=== PATIENT | female | born 1935 | race Two or more races ===

== ENCOUNTER 2020-02-05 13:42 | Outpatient (CLI) | payer MEDICARE, MEDICAID ==
[~2020-02-05] VITALS: Ht 154.9 cm; Wt 51.7 kg
[2020-02-05 14:05] VITALS: BP 144/64
--- NOTE | 2020-02-06 08:29 | Consultation ---
DATE OF CONSULTATION: 02/05/2020 GASTROENTEROLOGY CONSULTATION CONSULTING PHYSICIAN: Miki Washington MD. CHIEF COMPLAINT: "A lot of gas." HISTORY OF PRESENT ILLNESS: The patient was seen with the daughter, who speaks Lithuanian. Apparently, the patient was referred to us by another GI doctor for evaluation of gas. According to the family, the patient had GI procedures relatively recently, endoscopy and colonoscopy, and they did not find any much to explain her gas. PAST MEDICAL HISTORY: 1. Diabetes. 2. Hypertension. 3. Hypercholesteremia. PAST SURGICAL HISTORY: None. MEDICATIONS: Please see medication reconciliation list. FAMILY HISTORY: No family history of GI malignancies. SOCIAL HISTORY: The patient denies any tobacco, alcohol, or drug abuse. ALLERGIES: No known allergies. REVIEW OF SYSTEMS: Positive for constipation and gas and bloating. No evidence of bleeding. No weight loss. PHYSICAL EXAMINATION: VITAL SIGNS: Temperature 97.5, blood pressure 144/64, pulse 71, respirations 20. Height is 5 feet 1 inch. Weight is 114. HEENT: Normocephalic and atraumatic. Sclerae are anicteric. NECK: Supple. No evidence of obvious lymphadenopathy. CARDIOVASCULAR: Regular rate and rhythm. Plus S1-S2. LUNGS: Clear to auscultation bilaterally. ABDOMEN: Positive bowel sounds. Soft and nontender. No rebound. No guarding. No peritoneal sign. EXTREMITIES: No cyanosis. No clubbing. No edema. ASSESSMENT AND PLAN: This is an 84-year-old female, who was referred to us for evaluation of constipation, bloating, and gas. Apparently, the patient had a recent endoscopy and colonoscopy. Given that the patient had recent endoscopy and colonoscopy, we will not pursue. We are going to put the patient on Linzess low dose of 72 mcg one tablet every morning half an hour before breakfast. We are going to give this patient probiotic, Align one tablet p.o. daily. The patient to come back in a month for followup. If still symptomatic, we are going to re-evaluate and see what else needs to be done. Miki Washington M.D. DR: AIDEN JOB#: [id number] CC:
[2020-02-06] MEDS ORDERED: LISINOPRIL20 MG ORAL (15:05)
[2020-02-06] MEDS ORDERED: AMLODIPINE BESYL5 MG ORAL (15:05)
[2020-02-06] MEDS ORDERED: GLIPIZIDE-METF1 EAC2 PO (15:05)
[2020-02-06] MEDS ORDERED: MIRALAX17 G2 ORAL (15:05)
[2020-02-06] MEDS ORDERED: SIMVASTATIN20 MG ORAL (15:05)
== END 2020-02-05 15:42 | disposition home or self-care (01) ==
LOC: PAN 13:42
DX: R14.0 Abdominal distension (gaseous) (principal); E11.9 Type 2 diabetes mellitus without complications; I10 Essential (primary) hypertension; E78.00 Pure hypercholesterolemia, unspecified; K59.00 Constipation, unspecified
CPT/HCPCS: G0463